=== PATIENT | female | born 1950 | race Hispanic/Latino ===

== ENCOUNTER 2019-05-02 10:57 | Day surgery (SDC) | payer MEDICARE ==
[~2019-05-02] VITALS: Ht 157.5 cm; Wt 64.5 kg
[~2019-05-02 10:57] MED LIST: ASPI-555 PO; ISOS60TA4 PO; LEVO150T11 PO; LOSA50TA64 PO; METF-446 PO; METO-408 PO; ONDA8TAB12 PO; RANO10003 PO; SERT50TA12 PO; TRAZ-185 PO
[2019-05-02 12:28] VITALS: BP 190/93
[2019-05-02] MEDS ORDERED: SODIUM CHLORIDE 0.9% 1000ML 1,000 ML IV ONE (13:03)
[2019-05-02] MEDS ORDERED: GLIP5TAB11 PO (13:19)
[2019-05-02] MEDS ORDERED: FERR325T22 PO (13:19)
[2019-05-02] MEDS ORDERED: AMLO10TA7 PO (13:19)
[2019-05-02] MEDS ORDERED: SUCR1ORA5 PO (13:19)
[2019-05-02] MEDS ORDERED: PANT40TA25 PO (13:19)
[2019-05-02] MEDS ORDERED: PRAV40TA3 PO (13:19)
[2019-05-02] MEDS ORDERED: METO5TAB2 PO (13:19)
[2019-05-02 13:35] VITALS: BP 106/74
[2019-05-02 13:40] VITALS: BP 117/84
[2019-05-02 13:45] VITALS: BP 170/92
[2019-05-02 13:46] VITALS: BP 117/84
[2019-05-02 13:53] VITALS: BP 180/94
[2019-05-03] MEDS ORDERED: SODIUM CHLORIDE 0.9% 1000ML 1,000 ML IV ONE (05:45)
== END 2019-05-02 14:06 | disposition home or self-care (01) ==
LOC: DAH 10:57 → ENDO 10:57
PROVIDERS: ATTEND Internal Medicine
DX: K57.30 Diverticulosis of large intestine without perforation or abscess without bleeding (principal); K21.9 Gastro-esophageal reflux disease without esophagitis; E11.9 Type 2 diabetes mellitus without complications; E78.5 Hyperlipidemia, unspecified; I10 Essential (primary) hypertension; I25.10 Atherosclerotic heart disease of native coronary artery without angina pectoris; F32.9 Major depressive disorder, single episode, unspecified; Z88.3 Allergy status to other anti-infective agents; Z88.8 Allergy status to other drugs, medicaments and biological substances; Z79.899 Other long term (current) drug therapy; Z79.84 Long term (current) use of oral hypoglycemic drugs; Z86.73 Personal history of transient ischemic attack (TIA), and cerebral infarction without residual deficits; Z98.890 Other specified postprocedural states; Z86.010 Personal history of colon polyps; Z90.49 Acquired absence of other specified parts of digestive tract; Z98.49 Cataract extraction status, unspecified eye; Z79.82 Long term (current) use of aspirin; Z82.49 Family history of ischemic heart disease and other diseases of the circulatory system; Z83.3 Family history of diabetes mellitus; Z82.5 Family history of asthma and other chronic lower respiratory diseases
CPT/HCPCS: 45378; 82948; 93005; A4606; J7030

== ENCOUNTER 2019-05-03 09:14 | Day surgery (SDC) | payer OTHER, MEDICARE ==
[~2019-05-03] VITALS: Ht 157.5 cm; Wt 64.4 kg
[2019-05-03] VITALS (10 sets, daily range): BP systolic 102–178; BP diastolic 49–93
[~2019-05-03 09:14] MED LIST changes: +AMLO10TA7 PO; +FERR325T22 PO; +GLIP5TAB11 PO; -LOSA50TA64 PO; -METF-446 PO; -METO-408 PO; +METO5TAB2 PO; -ONDA8TAB12 PO; +PANT40TA25 PO; +PRAV40TA3 PO; +SUCR1ORA5 PO; -TRAZ-185 PO
[2019-05-03] MEDS ORDERED: SODIUM CHLORIDE 0.9% 1000ML 1,000 ML IV ONE (11:51)
== END 2019-05-03 13:59 | disposition home or self-care (01) ==
LOC: ENDO 09:14
PROVIDERS: ATTEND Internal Medicine Gastroenterology
DX: D12.3 Benign neoplasm of transverse colon (principal); K59.1 Functional diarrhea; I10 Essential (primary) hypertension; E78.5 Hyperlipidemia, unspecified; I25.10 Atherosclerotic heart disease of native coronary artery without angina pectoris; K21.9 Gastro-esophageal reflux disease without esophagitis; F32.9 Major depressive disorder, single episode, unspecified; E11.9 Type 2 diabetes mellitus without complications; Z88.8 Allergy status to other drugs, medicaments and biological substances; Z91.041 Radiographic dye allergy status; Z86.010 Personal history of colon polyps; Z98.890 Other specified postprocedural states; Z90.49 Acquired absence of other specified parts of digestive tract; Z98.49 Cataract extraction status, unspecified eye; Z79.84 Long term (current) use of oral hypoglycemic drugs; Z79.82 Long term (current) use of aspirin; Z86.73 Personal history of transient ischemic attack (TIA), and cerebral infarction without residual deficits; Z82.3 Family history of stroke; Z82.49 Family history of ischemic heart disease and other diseases of the circulatory system; Z83.3 Family history of diabetes mellitus
CPT/HCPCS: 45380; 45385; 82948 ×2; 88305; A4606; J7030